=== PATIENT | female | born 1955 | race Caucasian/White ===

== ENCOUNTER → 2017-12-20 | Outpatient (CLI) | payer MEDICARE ==
[~2017-12-20] MED LIST: Z.0.ATENOLOL50 MG PO; Z.0.LEVOTHYROXINE175 PO
== END ==
LOC: MAMMO 09:11
PROVIDERS: ATTEND Internal Medicine
DX: Z12.31 Encounter for screening mammogram for malignant neoplasm of breast (principal)
CPT/HCPCS: 77067

== ENCOUNTER → 2018-12-27 | Outpatient (CLI) | payer MEDICARE ==
--- NOTE | 2018-12-31 09:01 | Diagnostic Imaging Report ---
#[id number] - [id number] #BILATERAL DIGITAL SCREENING MAMMOGRAM WITH CAD: 12/27/2018 CLINICAL: Routine screening. Comparison is made to exams dated: 12/20/2017 mammogram and 12/19/2016 mammogram - [facility]. Current study contains 5 films. The tissue of both breasts is predominantly fatty. Current study was also evaluated with a Computer Aided Detection (CAD) system. There is a benign intramammary node in the right breast. No significant masses, calcifications, or other findings are seen in either breast. IMPRESSION: BENIGN There is no mammographic evidence of malignancy. A 1 year screening mammogram is recommended. The patient will be notified by letter of the results. MARKELL NEGRON M.D. ct/penrad:12/28/2018 17:15:15 Client Care Coordinator: Cinda VINES)([place]), [facility] letter sent: Normal Exam Mammogram BI-RADS: 2 Benign
== END ==
LOC: MAMMO 09:06
PROVIDERS: ATTEND Internal Medicine
DX: Z12.31 Encounter for screening mammogram for malignant neoplasm of breast (principal)
CPT/HCPCS: 77067

== ENCOUNTER → 2019-12-24 | Outpatient (CLI) | payer MEDICARE | LOC: MAMMO 09:32 | PROVIDERS: ATTEND Internal Medicine | DX: Z12.31 Encounter for screening mammogram for malignant neoplasm of breast (principal) | CPT/HCPCS: 77067 ==

== ENCOUNTER → 2020-12-24 | Outpatient (CLI) | payer MEDICARE | LOC: MAMMO 08:56 | PROVIDERS: ATTEND Internal Medicine | DX: Z12.31 Encounter for screening mammogram for malignant neoplasm of breast (principal) | CPT/HCPCS: 77067 ==

== ENCOUNTER → 2021-12-21 | Outpatient (CLI) | payer MEDICARE | LOC: MAMMO 10:14 | PROVIDERS: ATTEND Internal Medicine | DX: Z12.31 Encounter for screening mammogram for malignant neoplasm of breast (principal) | CPT/HCPCS: 77067 ==

== ENCOUNTER 2022-10-16 21:54 | Inpatient (IN) | payer MEDICARE ==
[~2022-10-16] VITALS: Ht 167.6 cm; Wt 89.4 kg
[2022-10-16] MEDS ORDERED: ONDANSETRON HCL INJ 2MG/ML 2ML 2 MG/ML VIAL IV STA (21:57)
[2022-10-16] MEDS ORDERED: SODIUM CHLORIDE 0.9% 1000ML 1,000 ML IV ONE (22:00)
[2022-10-16 22:17] LABS: BASOPHILS % 0.2 % (0.0-1.0); EOSINOPHILS # (AUTO) 0.1 (0.0-0.4); EOSINOPHILS % 1.2 % (0.0-6.0); HEMATOCRIT 45.9 % (34.2-44.1); LYMPHOCYTES # (AUTO) 1.1 (1.0-3.2); LYMPHOCYTES % 16.7 % (18.0-39.1); MEAN CORPUSCULAR HEMOGLOBIN 29.2 pg (28-32); MEAN CORPUSCULAR HGB CONC 32.7 g/dL (31-35); MEAN CORPUSCULAR VOLUME 89.5 fL (81-99); MONOCYTES # (AUTO) 1.1 (0.2-0.8); NEUTROPHILS # (AUTO) 4.4 (2.1-6.9); NEUTROPHILS % 65.4 % (38.7-80.0); PLATELET COUNT 356 x10e3/uL (140-360); RED BLOOD COUNT 5.13 x10e6/uL (3.6-5.1); RED CELL DISTRIBUTION WIDTH 14.2 % (11.7-14.4)
[2022-10-16 22:19] LABS: CLARITY,URINE CLOUDY (CLEAR); COLOR,URINE YELLOW (YELLOW)
[2022-10-16 22:20] LABS: KETONES,URINE NEGATIVE (NEGATIVE); LEUKOCYTE ESTERASE ,URINE TRACE (NEGATIVE); NITRITE,URINE POSITIVE (NEGATIVE); PROTEIN,URINE DIPSTICK >=300 (NEGATIVE); URINE UROBILINOGEN 0.2 mg/dL (0.2 - 1)
[2022-10-16 22:26] LABS: BACTERIA,URINE MANY /HPF; EPITHELIAL CELLS,URINE FEW /LPF; TRANSITIONAL EPI CELLS,URINE FEW; WBC,URINE (MAN) >50 /HPF (0-5)
[2022-10-16 22:34] LABS: ALBUMIN 4.1 g/dL (3.5-5.0); ALBUMIN/GLOBULIN RATIO 1.1 (0.8-2.0); ANION GAP 17.7 mmol/L (8-16); CALCIUM 9.8 mg/dL (8.4-10.2); CREATININE, SERUM 1.57 mg/dL (0.57-1.11); POTASSIUM 3.7 mmol/L (3.5-5.1)
[2022-10-16 22:41] LABS: CREATINE KINASE MB 2.1 ng/mL (0-5.0)
[2022-10-17] VITALS (7 sets, daily range): BP systolic 102–126; BP diastolic 54–74; PULSE 66–76; RESP 17–20; TEMP 97.6–98.8; O2SAT 95–100
[2022-10-17] MEDS ORDERED: ONDANSETRON HCL INJ 2MG/ML 2ML 2 MG/ML VIAL IV PRN ×2 (01:15→11:45)
[2022-10-17] MEDS ORDERED: SODIUM CHLORIDE 0.9% 1000ML 1,000 ML IV SCH (01:15)
[2022-10-17] MEDS ORDERED: Morphine 2mg Syringe 2 MG/ML SYR IV PRN (01:15)
[2022-10-17] MEDS ORDERED: BENZOCAINE 20% SPR 60 ML CAN ONE (01:56)
[2022-10-17] MEDS ORDERED: BENZOCAINE 20% SPR 60 ML CAN MT ONE (02:00)
[2022-10-17] MEDS ORDERED: ONDANSETRON HCL4 MG PO (10:45)
[2022-10-17] MEDS ORDERED: DICYCLOMINE HCL20 MG PO (10:45)
[2022-10-17] MEDS ORDERED: CLONIDINE HCL0.2 MG (10:45)
[2022-10-17] MEDS ORDERED: LOSARTAN POTASS50 MG PO (10:45)
[2022-10-17] MEDS ORDERED: ROSUVASTATIN CA40 MG PO (10:45)
[2022-10-17] MEDS ORDERED: CLONIDINE HCL0.2 MG PO (10:52)
[2022-10-17] MEDS ORDERED: MELATONIN 5 MG TABLET PO PRN (11:45)
[2022-10-17] MEDS ORDERED: POTASSIUM CHLORIDE 20 MEQ TAB CR PO PRN (11:45)
[2022-10-17] MEDS ORDERED: DOCUSATE SODIUM 100 MG CAP PO PRN (11:45)
[2022-10-17] MEDS ORDERED: DEXTROSE 50% SYRINGE 50 ML IV PRN (11:45)
[2022-10-17] MEDS ORDERED: ACETAMINOPHEN 325 MG TAB PO PRN (11:45)
[2022-10-17] MEDS ORDERED: BENZONATATE 100 MG CAP PO PRN (11:45)
[2022-10-17] MEDS ORDERED: ALBUTEROL/IPRATROPIUM 3 ML NEB NEB PRN (11:45)
[2022-10-17] MEDS ORDERED: SIMETHICONE 80 MG CHEW PO PRN (11:45)
[2022-10-17] MEDS ORDERED: LIDOCAINE 4% PATCH TP PRN (11:45)
[2022-10-17] MEDS ORDERED: HYDRALAZINE HCL 20 MG/ML VIAL IV PRN (11:45)
[2022-10-17] MEDS ORDERED: DIPHENHYDRAMINE HCL 25 MG CAP PO PRN (11:45)
[2022-10-17] MEDS ORDERED: BISACODYL 10 MG SUPP PR ONE (13:30)
[2022-10-17] MEDS: DEXTROSE 5%/0.9% SOD CHL 1,000 ML IV SCH ×2 (13:37→21:48)
[2022-10-17] MEDS: ENOXAPARIN SOD INJ 40 MG/0.4 ML SYR SC SCH (16:37)
[2022-10-17] MEDS: BISACODYL 10 MG SUPP PR SCH (21:00)
[2022-10-17] MEDS: CHLORASEPTIC SPRAY 177 ML BTL MM PRN (21:52)
[2022-10-18] VITALS (8 sets, daily range): BP systolic 114–152; BP diastolic 52–86; PULSE 68–80; RESP 16–20; TEMP 97.1–99; O2SAT 97–100
[2022-10-18 06:03] LABS: BASOPHILS % 0.9 % (0.0-1.0); EOSINOPHILS # (AUTO) 0.3 (0.0-0.4); EOSINOPHILS % 6.6 % (0.0-6.0); HEMATOCRIT 40.6 % (34.2-44.1); HEMOGLOBIN 12.6 g/dL (12.0-16.0); LYMPHOCYTES # (AUTO) 0.8 (1.0-3.2); LYMPHOCYTES % 16.6 % (18.0-39.1); MEAN CORPUSCULAR HEMOGLOBIN 28.8 pg (28-32); MEAN CORPUSCULAR VOLUME 92.7 fL (81-99); MONOCYTES # (AUTO) 0.8 (0.2-0.8); MONOCYTES % 16.6 % (4.4-11.3); NEUTROPHILS # (AUTO) 2.8 (2.1-6.9); NEUTROPHILS % 58.9 % (38.7-80.0); PLATELET COUNT 238 x10e3/uL (140-360); RED BLOOD COUNT 4.38 x10e6/uL (3.6-5.1); RED CELL DISTRIBUTION WIDTH 13.7 % (11.7-14.4)
[2022-10-18] MEDS: PANTOPRAZOLE SOD 40 MG TABEC PO SCH (06:19)
[2022-10-18 06:33] LABS: ALBUMIN 3.2 g/dL (3.5-5.0); ANION GAP 12.1 mmol/L (8-16); CALCIUM 8.6 mg/dL (8.4-10.2); CREATININE, SERUM 1.12 mg/dL (0.57-1.11); PHOSPHORUS 2.1 MG/DL (2.3-4.7); POTASSIUM 3.1 mmol/L (3.5-5.1)
[2022-10-18 06:53] LABS: THYROID STIMULATING HORMONE 0.338 uIU/mL (0.350-4.940)
[2022-10-18] MEDS: BISACODYL 10 MG SUPP PR SCH (08:03)
[2022-10-18] MEDS: DEXTROSE 5%/0.9% SOD CHL 1,000 ML IV SCH ×2 (08:03→16:40)
[2022-10-18] MEDS ORDERED: SODIUM PHOSPHATE IN 0.9 % NACL 15 MMOL in SODIUM CHLORIDE 0.9% 250ML 250 ML IV ONE ×2 (09:30)
[2022-10-18] MEDS ORDERED: POTASSIUM CHLORIDE 20MEQ/100ML 100 ML IV ONE (10:00)
[2022-10-18] MEDS ORDERED: POTASSIUM CHLORIDE 20MEQ/100ML 100 ML IV SCH (10:00)
[2022-10-18] MEDS ORDERED: POTASSIUM PHOSPHATE 15 MM in DEXTROSE 5% 250ML 250 ML IV ONE (12:00)
[2022-10-18] MEDS: CHLORASEPTIC SPRAY 177 ML BTL MM PRN ×3 (12:08→21:07)
[2022-10-18] MEDS: ENOXAPARIN SOD INJ 40 MG/0.4 ML SYR SC SCH (16:31)
[2022-10-18] MEDS ORDERED: BISACODYL 10 MG SUPP PR ONE (19:40)
[2022-10-19] VITALS (10 sets, daily range): BP systolic 125–150; BP diastolic 71–88; PULSE 73–92; RESP 18–20; TEMP 97.5–99.4; O2SAT 95–100
[2022-10-19] MEDS: DEXTROSE 5%/0.9% SOD CHL 1,000 ML IV SCH ×3 (04:26→19:58)
[2022-10-19 06:02] LABS: BASOPHILS % 0.4 % (0.0-1.0); EOSINOPHILS # (AUTO) 0.3 (0.0-0.4); EOSINOPHILS % 4.7 % (0.0-6.0); HEMATOCRIT 41.8 % (34.2-44.1); HEMOGLOBIN 13.3 g/dL (12.0-16.0); LYMPHOCYTES # (AUTO) 0.9 (1.0-3.2); LYMPHOCYTES % 12.5 % (18.0-39.1); MEAN CORPUSCULAR HEMOGLOBIN 28.7 pg (28-32); MEAN CORPUSCULAR HGB CONC 31.8 g/dL (31-35); MEAN CORPUSCULAR VOLUME 90.3 fL (81-99); MONOCYTES # (AUTO) 0.9 (0.2-0.8); MONOCYTES % 12.9 % (4.4-11.3); NEUTROPHILS % 68.8 % (38.7-80.0); PLATELET COUNT 274 x10e3/uL (140-360); RED BLOOD COUNT 4.63 x10e6/uL (3.6-5.1); RED CELL DISTRIBUTION WIDTH 13.3 % (11.7-14.4)
[2022-10-19 06:27] LABS: ANION GAP 11.2 mmol/L (8-16); CALCIUM 8.9 mg/dL (8.4-10.2); CREATININE, SERUM 0.94 mg/dL (0.57-1.11); POTASSIUM 3.2 mmol/L (3.5-5.1)
[2022-10-19] MEDS: PANTOPRAZOLE SOD 40 MG TABEC PO SCH (09:25)
[2022-10-19] MEDS ORDERED: BISACODYL 10 MG SUPP PR ONE (12:50)
[2022-10-19] MEDS: POTASSIUM CHLORIDE 20MEQ/100ML 100 ML IV SCH ×2 (15:11→17:21)
[2022-10-19] MEDS: ENOXAPARIN SOD INJ 40 MG/0.4 ML SYR SC SCH (17:21)
[2022-10-20] VITALS (7 sets, daily range): BP systolic 118–133; BP diastolic 70–90; PULSE 64–68; RESP 18–20; TEMP 97.7–98.6; O2SAT 97–98
[2022-10-20 05:52] LABS: BASOPHILS % 0.4 % (0.0-1.0); EOSINOPHILS # (AUTO) 0.5 (0.0-0.4); EOSINOPHILS % 6.6 % (0.0-6.0); HEMATOCRIT 37.4 % (34.2-44.1); LYMPHOCYTES # (AUTO) 1.4 (1.0-3.2); MEAN CORPUSCULAR HGB CONC 32.1 g/dL (31-35); MEAN CORPUSCULAR VOLUME 90.3 fL (81-99); MONOCYTES # (AUTO) 0.7 (0.2-0.8); MONOCYTES % 10.3 % (4.4-11.3); NEUTROPHILS # (AUTO) 4.3 (2.1-6.9); NEUTROPHILS % 61.7 % (38.7-80.0); PLATELET COUNT 271 x10e3/uL (140-360); RED BLOOD COUNT 4.14 x10e6/uL (3.6-5.1); RED CELL DISTRIBUTION WIDTH 13.4 % (11.7-14.4)
[2022-10-20 06:20] LABS: ANION GAP 10.2 mmol/L (8-16); CALCIUM 8.2 mg/dL (8.4-10.2); CREATININE, SERUM 0.82 mg/dL (0.57-1.11); POTASSIUM 3.2 mmol/L (3.5-5.1)
[2022-10-20] MEDS: DEXTROSE 5%/0.9% SOD CHL 1,000 ML IV SCH ×2 (06:33→21:05)
[2022-10-20] MEDS: PANTOPRAZOLE SOD 40 MG TABEC PO SCH (07:30)
[2022-10-20 07:36] LABS: BAND NEUTROPHILS % (MANUAL) 2 %; EOSINOPHILS % (MANUAL) 4 % (0-7); LYMPHOCYTES % (MANUAL) 15 % (19-48); MONOCYTES % (MANUAL) 7 % (3.4-9.0); NEUTROPHILS % (MANUAL) 67 % (40-74)
[2022-10-20 07:37] LABS: PLATELET ESTIMATE ADEQUATE; PLATELET MORPHOLOGY COMMENT NORMAL; RBC MORPHOLOGY COMMENT NORMAL
[2022-10-20] MEDS: POLYETHYLENE GLYCOL 3350 17 GM PACK PO SCH ×2 (11:20→17:00)
[2022-10-20] MEDS: ENOXAPARIN SOD INJ 40 MG/0.4 ML SYR SC SCH (17:24)
[2022-10-20] MEDS ORDERED: MAGNESIUM HYDROXIDE 30 ML UDC PO ONE (18:55)
[2022-10-20] MEDS: BISACODYL 5 MG TAB EC PO SCH (21:03)
[2022-10-21 04:00] VITALS: BP 135/72; PULSE 67; RESP 18; TEMP 97.8; O2SAT 100
[2022-10-21 06:23] LABS: CREATININE, SERUM 0.77 mg/dL (0.57-1.11)
[2022-10-21 06:39] LABS: CALCIUM 8.1 mg/dL (8.4-10.2)
[2022-10-21] MEDS: PANTOPRAZOLE SOD 40 MG TABEC PO SCH (07:30)
[2022-10-21 07:48] VITALS: PULSE 73; RESP 18; O2SAT 97
[2022-10-21 08:14] VITALS: BP 116/66; PULSE 65; RESP 20; TEMP 98.6; O2SAT 97
[2022-10-21 08:36] VITALS: BP 116/66; PULSE 65; RESP 20; TEMP 98.6; O2SAT 97
[2022-10-21] MEDS: BISACODYL 5 MG TAB EC PO SCH ×2 (09:03→17:00)
[2022-10-21 12:23] VITALS: BP 144/88; PULSE 73; RESP 18; TEMP 98.6; O2SAT 97
[2022-10-21] MEDS ORDERED: POTASSIUM CHLORIDE 20 MEQ TAB CR PO ONE ×2 (12:35→18:45)
[2022-10-21] MEDS ORDERED: MAGNESIUM HYDROXIDE 30 ML UDC PO ONE (13:00)
[2022-10-21] MEDS ORDERED: CITRATE OF MAGNESIA 300ML BOTTLE PO ONE (13:30)
[2022-10-21 16:15] VITALS: BP 136/79; PULSE 72; RESP 18; TEMP 98.3; O2SAT 97
[2022-10-21] MEDS: ENOXAPARIN SOD INJ 40 MG/0.4 ML SYR SC SCH (17:00)
[2022-10-21] MEDS ORDERED: CEFDINIR300 MG PO (18:15)
== END 2022-10-21 18:45 | disposition home or self-care (01) | DRG 390 ==
LOC: ER 21:57 → ERHOLD 10-17 01:06 → MED/SURG3 10-17 02:55
PROVIDERS: ADMIT Internal Medicine; ATTEND Internal Medicine
DX: K56.609 Unspecified intestinal obstruction, unspecified as to partial versus complete obstruction (principal); N20.0 Calculus of kidney; I10 Essential (primary) hypertension; E11.69 Type 2 diabetes mellitus with other specified complication; Z79.4 Long term (current) use of insulin; E87.8 Other disorders of electrolyte and fluid balance, not elsewhere classified; Z20.822 Contact with and (suspected) exposure to COVID-19; B96.20 Unspecified Escherichia coli [E. coli] as the cause of diseases classified elsewhere
CPT/HCPCS: 36415; 74018; 74022; 74176; 80048; 80053; 81001; 82550; 82553; 83036; 83690; 83735; 84100; 84443; 84484; 85025; 87086; 87186; 93005; 94799; 99285; J0692; J0696; J1650; J2405; J3480; J7030; J7042